=== PATIENT | male | born 1990 | race Two or more races ===

== ENCOUNTER 2017-08-18 23:04 | Emergency (ER) | payer OTHER ==
[~2017-08-18] VITALS: Ht 172.7 cm; Wt 77.1 kg
--- NOTE | 2017-08-18 23:25 | NUR ---
TO BED 7 A 26 YO MALE PT BIB FRIEND, PT C/O LAC ON LEFT 4TH FINGER X 50 MINUTES AGO ON [place]. VSS. NAD NOTED. NONDIAPHORETIC. COMFORT MEASURES RENDERED. INITIAL WOUND CARE DONE.
[2017-08-18] MEDS ORDERED: GELATIN SPONGE,ABSORBABLE 1 SPONGE SPONGE TP ONE (23:38)
[2017-08-19] MEDS ORDERED: GELATIN SPONGE,ABSORBABLE 1 SPONGE SPONGE TP ONE
[2017-08-19 00:06] VITALS: BP 136/75
--- NOTE | 2017-08-19 00:06 | NUR ---
Wound care done. Patient discharged to home in stable condition. Written and verbal after care instructions given. Patient verbalizes understanding of instruction. Patient is ambulatory with steady gait. No further complaints.
== END 2017-08-19 00:07 | disposition home or self-care (01) ==
LOC: ER 23:09
DX: S61.412A Laceration without foreign body of left hand, initial encounter (principal); W26.0XXA Contact with knife, initial encounter; Y93.89 Activity, other specified; Y92.89 Other specified places as the place of occurrence of the external cause; Y99.8 Other external cause status
CPT/HCPCS: A4606; A6402; Z7610

== ENCOUNTER 2018-09-11 03:10 | Emergency (ER) | payer OTHER ==
[~2018-09-11] VITALS: Ht 172.7 cm; Wt 78.0 kg
[2018-09-11 04:07] VITALS: BP 116/88
== END 2018-09-11 04:20 | disposition home or self-care (01) ==
LOC: ER 03:10
DX: K08.89 Other specified disorders of teeth and supporting structures (principal)
CPT/HCPCS: 99282; A4606